=== PATIENT | male | born 1940 | race Caucasian/White ===

== ENCOUNTER 2022-08-13 14:52 | Emergency (ER) | payer OTHER, SELFPAY ==
[2022-08-13] VITALS (13 sets, daily range): BP systolic 101–151; BP diastolic 48–64; PULSE 59–69; RESP 18–30; O2SAT 93–97; BMI 36.3
--- NOTE | 2022-08-13 15:03 | DI.CT.S_ITS ---
PROCEDURE: CT HEAD/BRAIN WO CON INDICATIONS: fall, hit head, anticoag, ? syncope TECHNIQUE: Noncontrast 4.5 mm thick angled axial sections acquired from the foramen magnum to the vertex, with coronal and sagittal reformats. For radiation dose reduction, the following was used: automated exposure control, adjustment of mA and/or kV according to patient size. COMPARISON: [facility], CT, CT CERVICAL SPINE WO CON, 08/13/2022, 15:11. [facility], CR, XR CHEST 1V, 08/13/2022, 14:57. FINDINGS: Image quality: Mild streak artifact can be seen through the skull base. CSF spaces: Basal cisterns are patent. No extra-axial fluid collections. The ventricles are symmetric in size and shape. Brain: No intracranial bleeds or masses. There is cerebral volume loss for age, with resultant ventricular and sulcal prominence. There are periventricular and deep white matter chronic small vessel ischemic changes. There is intracranial internal carotid artery atherosclerosis. Skull and face: Calvarium and visualized facial bones appear intact, without suspicious lesions. Sinuses: Visualized sinuses and mastoids are clear. IMPRESSION: No acute intracranial hemorrhage is seen. No acute intracranial process is seen. Note is made of age-appropriate brain parenchymal volume loss and chronic small vessel ischemic changes. Dictated by: Michael Watkins M.D. on 08/13/2022 at 14:46 Approved by: Michael Watkins M.D. on 08/13/2022 at 14:47
--- NOTE | 2022-08-13 15:03 | DI.CT.S_ITS ---
PROCEDURE: CT CERVICAL SPINE WO CON INDICATIONS: fall TECHNIQUE: Noncontrast 3 mm thick sections acquired from the skull base to the T4 level. Sagittal and coronal reformats were then constructed. For radiation dose reduction, the following was used: automated exposure control, adjustment of mA and/or kV according to patient size. COMPARISON: [facility], CT, CT HEAD/BRAIN WO CON, 08/13/2022, 15:11. [facility], CR, XR CHEST 1V, 08/13/2022, 14:57. FINDINGS: Image quality: This examination is somewhat limited by quantum mottle artifact. Bones: No fractures or dislocations. Visualized superior ribs are intact. There is at least moderate disc space narrowing seen at C3-C4, C4-C5, C5-C6, and C6-C7. Moderate disc space narrowing is seen at C7-T1. Minimal anterolisthesis is seen C2-C3, C3-C4, and C7-T1. Bridging anterior osteophytes are seen throughout mid cervical spine. Soft tissues: Prevertebral soft tissues are normal in thickness. No paravertebral hematomas. No apical pneumothoraces. These 2 leads are partially seen. IMPRESSION: Negative for acute fracture. Advanced cervical spine degenerative changes are seen. Pacer leads are partially seen. Dictated by: Michael Watkins M.D. on 08/13/2022 at 14:44 Approved by: Michael Watkins M.D. on 08/13/2022 at 14:46
--- NOTE | 2022-08-13 15:04 | DI.RAD.S_ITS ---
PROCEDURE: XR CHEST 1V INDICATIONS: syncope, fall TECHNIQUE: One view of the chest was acquired. COMPARISON: [facility], CT, CT HEAD/BRAIN WO [facility], 08/13/2022, 15:11. [facility], CT, CT CERVICAL SPINE WO CON, 08/13/2022, 15:11. FINDINGS: Surgical changes and devices: A pacer device is seen. Lungs and pleura: Lungs are clear. No pleural effusions or pneumothorax. Mediastinum: Mediastinal contours appear normal. Heart size is normal. Atherosclerotic calcification of the aortic arch is noted. Bones and chest wall: No suspicious bony lesions. Age-appropriate bony degenerative changes are seen. Overlying soft tissues appear unremarkable. IMPRESSION: Unremarkable portable chest study for age. Dictated by: Michael Watkins M.D. on 08/13/2022 at 14:49 Approved by: Michael Watkins M.D. on 08/13/2022 at 14:50
[2022-08-13 15:23] LABS: Add Manual Diff / Slide Review NO; Basophils Absolute Auto 0 /uL (0-100); Basophils Percent Auto 0.4 % (0-2); Eosinophils Absolute Auto 300 /uL (0-450); Eosinophils Percent Auto 3.4 % (2-4); Hematocrit 37.7 % (41-53); Lymphocytes Absolute Auto 1600 /uL (1100-4500); Lymphocytes Percent Auto 18.3 % (25-40); Mean Corpuscular HGB Conc 34.4 % (30-36); Mean Corpuscular Hemoglobin 31.7 PG (26-34); Mean Corpuscular Volume 92.2 fL (80-100); Monocytes Absolute Auto 700 /uL (0-900); Monocytes Percent Auto 7.8 % (3-14); Neutrophils Absolute Auto 6100 /uL (1500-7000); Neutrophils Percent Auto 70.1 % (50-75); Platelet Count 210 X10^3/uL (150-400); Red Blood Cell Count 4.09 X10^6/uL (4.5-5.9); Red Cell Distribution Width 13.6 % (11.6-14.8); White Blood Cell Count 8.7 X10^3/uL (4.5-11.0)
[2022-08-13 15:34] LABS: Alanine Aminotransferase 69 IU/L (<50); Albumin 4.2 g/dL (3.5-5.0); Albumin Globulin Ratio 1.5 (1.0-2.8); Alkaline Phosphatase 49 U/L (38-126); Aspartate Aminotransferase 55 IU/L (17-59); BUN Creatinine Ratio 22.2 (6-22); Bilirubin Total 0.4 mg/dL (0.2-1.3); Blood Urea Nitrogen 28 mg/dL (9-20); Calcium 9.4 mg/dL (8.4-10.2); Carbon Dioxide 21 mmol/L (22-32); Chloride 99 mmol/L (98-107); Estimated Glomerular Filt Rate 58 mL/min (>60); Globulin 2.8 g/dL (1.7-4.1); Glucose 147 mg/dL (80-110); HEMOLYSIS < 15 (0-50); Magnesium 1.6 mg/dL (1.6-2.3); Potassium 4.2 mmol/L (3.4-5.1); Sodium 138 mmol/L (137-145)
[2022-08-13 15:46] LABS: NT-proBNP (BNP-Adult 18+) 65 pg/mL (<450); Troponin I < 0.012 ng/mL (0.01-0.034)
--- NOTE | 2022-08-13 15:50 | ED_ITS ---
HPI - Fall General Chief Complaint: Fall Stated Complaint: Fall/head injury/ thinners Time Seen by Provider: 08/13/22 14:55 Source: patient and EMS Mode of arrival: EMS History of Present Illness HPI Narrative: 81-year-old gentleman with history of coronary artery disease, congestive heart failure, pacemaker in place was standing in line began to feel somewhat lightheaded. Bystanders describe him leaning against a pole and then losing balance falling backwards. He describes landing on his bottom 1st then is back then hitting his head. He is on Plavix. Bystanders describe him as unresponsive he describes a sensation of being able to see himself but not able to control his fall. He is not complaining of any pain at this time. He does not note that he has recently had fevers, cough, chills. He has not been noticing chest pain, palpitations, lower extremity edema worsening. Pacemaker interrogation, RxAnte- no cardiac events today with pacemaker interrogation Medications include benazepril 20 mg, hydrochlorothiazide 25 mg, metformin 500 mg b.i.d., finasteride 5 mg, clopidogrel 75 mg, pantoprazole 40 mg, sertraline 50 mg, atorvastatin 80 mg Related Data Allergies Allergy/AdvReac Type Severity Reaction Status Date / Time cephalexin [From Keflex] Allergy Verified 08/13/22 15:04 hydrocodone Allergy Verified 08/13/22 15:04 hydrocortisone Allergy Verified 08/13/22 15:04 Review of Systems Review of Systems Narrative: Remainder of complete review of systems is otherwise unremarkable except for that included in the HPI. Patient History Medical History (Updated 08/13/22 @ 19:17 by Shellie Alves MD) Abdominal hernia Congestive heart failure Coronary artery disease History of pacemaker Hyperlipidemia Hypertension Surgical History (Updated 08/13/22 @ 19:13 by Shellie Alves MD) History of tonsillectomy Social History Smoking Status: Current some day smoker Smoking Status: Current some day smoker tobacco type: cigars alcohol intake frequency: a few times a week Alcohol type: hard liquor Substance Use Type: does not use Exam Initial Vital Signs Initial Vital Signs: Vital Signs Blood Pressure 101/48 L 08/13/22 14:57 General: Healthy appearing, in no acute distress. Able to give a complete and coherent history. Well-nourished well-developed HEENT: Moist mucous membranes, normal sclera with reactive pupils, Neck: No JVD, supple, mild mid cervical tenderness to palpation Respiratory: Lungs are clear to auscultation, no wheezing no rales no rhonchi. Full and symmetrical air movement Cardiac: Irregular without murmurs or bruits. Abdomen: Soft, nontender, good bowel tones, no flank pain Skin: Warm and dry, no rashes Neurologic: Grossly neurologically intact with no obvious asymmetries or abnormalities Extremities: No trauma, well perfused Psych: Cooperative, appropriate insight and affect Course Orders Ordered: ED Orders 08/13/22 14:59 EKG-12 Lead Routine 08/13/22 15:03 CT cervical spine wo con Stat CT head/brain wo con Stat 08/13/22 15:04 XR chest 1V Stat 08/13/22 15:09 Complete Blood Count AUTO DIFF Stat Comprehensive Metabolic Panel Stat Magnesium Stat NT-proBNP (BNP-Adult 18+) Stat Troponin I Stat 08/13/22 15:33 COVID19 -Nasal RAPID/Pre-Proc Stat Vital Signs Vital signs: Vital Signs - 8 hr 08/13/22 15:04 08/13/22 14:57 08/13/22 14:58 Pulse Rate 62 66 Respiratory Rate 23 26 H Blood Pressure 101/48 L 101/48 L Pulse Oximetry 94 95 Oxygen Delivery Method Room Air 08/13/22 15:00 08/13/22 15:00 08/13/22 15:30 Pulse Rate 60 60 Respiratory Rate 25 H 24 Blood Pressure 106/56 L Pulse Oximetry 93 94 Oxygen Delivery Method 08/13/22 16:00 08/13/22 16:30 08/13/22 17:00 Pulse Rate 60 60 69 Respiratory Rate 25 H 27 H 27 H Blood Pressure Pulse Oximetry 94 95 Oxygen Delivery Method 08/13/22 17:02 08/13/22 17:02 08/13/22 17:30 Pulse Rate 61 59 L Respiratory Rate 25 H 18 Blood Pressure 151/64 H Pulse Oximetry 95 97 Oxygen Delivery Method MDM - Fall Lab Data Result diagrams: 08/13/22 15:09 08/13/22 15:09 Labs: Lab Results 08/13/22 08/13/22 08/13/22 Range/Units 15:09 15:09 15:33 WBC 8.7 (4.5-11.0) X10^3/uL RBC 4.09 L (4.5-5.9) X10^6/uL Hgb 13.0 L (13.5-17.5) g/dL Hct 37.7 L (41-53) % MCV 92.2 (80-100) fL MCH 31.7 (26-34) PG MCHC 34.4 (30-36) % RDW 13.6 (11.6-14.8) % Plt Count 210 (150-400) X10^3/uL Neut % (Auto) 70.1 (50-75) % Lymph % (Auto) 18.3 L (25-40) % [place] % (Auto) 7.8 (3-14) % Eos % (Auto) 3.4 (2-4) % Baso % (Auto) 0.4 (0-2) % Neut # (Auto) 6100 (2980-4702) /uL Lymph # (Auto) 1600 (2720-1574) /uL [place] # (Auto) 700 (0-900) /uL Eos # (Auto) 300 (0-450) /uL Baso # (Auto) 0 (0-100) /uL Sodium 138 (137-145) mmol/L Potassium 4.2 (3.4-5.1) mmol/L Chloride 99 (98-107) mmol/L Carbon Dioxide 21 L (22-32) mmol/L BUN 28 H (9-20) mg/dL Creatinine 1.26 H (0.66-1.25) mg/dL Estimated GFR 58 L (>60) mL/min BUN/Creatinine Ratio 22.2 H (6-22) Glucose 147 H (80-110) mg/dL Calcium 9.4 (8.4-10.2) mg/dL Magnesium 1.6 (1.6-2.3) mg/dL Total Bilirubin 0.4 (0.2-1.3) mg/dL AST 55 (17-59) IU/L ALT 69 H (<50) IU/L Alkaline Phosphatase 49 (38-126) U/L Troponin I < 0.012 (0.01-0.034) ng/mL NT-Pro-B Natriuret Pep 65 (<450) pg/mL Total Protein 7.0 (6.3-8.2) g/dL Albumin 4.2 (3.5-5.0) g/dL Globulin 2.8 (1.7-4.1) g/dL Albumin/Globulin Ratio 1.5 (1.0-2.8) SARS-CoV-2 (PCR) Negative (Negative) Imaging Data Chest x-ray: Radiologist's Impression: FINDINGS:? ? Surgical changes and devices:? A pacer device is seen.? ? Lungs and pleura:? Lungs are clear.? No pleural effusions or pneumothorax.? ? Mediastinum:? Mediastinal contours appear normal.? Heart size is normal.? Atherosclerotic calcification of the aortic arch is noted.? ? Bones and chest wall:? No suspicious bony lesions.? Age-appropriate bony degenerative changes are seen. ? Overlying soft tissues appear unremarkable.? ? ? IMPRESSION:? Unremarkable portable chest study for age. ? ? Dictated by: Michael Watkins M.D. on 08/13/2022 at 14:49 ? ? CT scan - head: Radiologist's Impression: FINDINGS:? ? Surgical changes and devices:? A pacer device is seen.? ? Lungs and pleura:? Lungs are clear.? No pleural effusions or pneumothorax.? ? Mediastinum:? Mediastinal contours appear normal.? Heart size is normal.? Atherosclerotic calcification of the aortic arch is noted.? ? Bones and chest wall:? No suspicious bony lesions.? Age-appropriate bony degenerative changes are seen. ? Overlying soft tissues appear unremarkable.? ? ? IMPRESSION:? Unremarkable portable chest study for age. ? ? Dictated by: Michael Watkins M.D. on 08/13/2022 at 14:49 ? ? CT - cervical spine: Radiologist's Impression: FINDINGS:? Image quality:? This examination is somewhat limited by quantum mottle artifact.? ? Bones:? No fractures or dislocations.? Visualized superior ribs are intact.? ? There is at least moderate disc space narrowing seen at C3-C4, C4-C5, C5-C6, and C6-C7.? Moderate disc space narrowing is seen at C7-T1.? Minimal anterolisthesis is seen C2-C3, C3-C4, and C7-T1.? Bridging anterior osteophytes are seen throughout mid cervical spine. ? Soft tissues:? Prevertebral soft tissues are normal in thickness.? No paravertebral hematomas.? No apical pneumothoraces.? These 2 leads are partially seen. ? ? IMPRESSION:? Negative for acute fracture. ? Advanced cervical spine degenerative changes are seen. ? Pacer leads are partially seen. ? ? Dictated by: Michael Watkins M.D. on 08/13/2022 at 14:44 ? ? ECG Data Interpretation: Paced rhythm at a rate of 59 MDM Narrative Medical decision making narrative: 81-year-old gentleman who was standing in line outside in the warm sun mid day with a near syncopal episode. There is no evidence of intracranial bleed, significant musculoskeletal trauma, TIA or stroke, no suggestion of infection, sepsis, acute coronary syndrome, aortic dissection or additional diagnosis at require hospitalization and further observation. Patient is re-examined and continues to have no pain and no complaints. Questions are answered and he is safe for home discharge Discharge Plan Departure Patient Disposition: Home Clinical Impression: Postural dizziness with near syncope Fall Qualifiers: Encounter type: initial encounter Qualified Code(s): W19.XXXA - Unspecified fall, initial encounter Instructions: DI for Orthostatic Hypotension Activity Restrictions/Additional Instructions: Thank you for coming in today I suspect that you are slightly dehydrated and that in combination with standing with your knees locked while waiting in line leg to your near syncopal episode. Fortunately, the remainder of your workup is very reassuring. There is no bleeding inside her brain, no injury to your cervical spine, no evidence of infection, heart attack, stroke or alternate explanations that would require hospitalization this evening. I would encourage you to make sure that your drinking plenty of fluids but I do not suggest any changes to your medications. Please do follow-up your primary care doctor If you find that you are getting worse or develop any new symptoms, please feel free to return to the emergency department for further evaluation. Referrals: Chucky Whitaker MD [Primary Care Provider] -
[2022-08-13 15:57] LABS: COVID19 -Nasal RAPID Negative (Negative)
== END 2022-08-13 19:34 | disposition home or self-care (01) ==
PROVIDERS: Emergency Provider Emergency Medicine; PCP Family Medicine
DX: R42 Dizziness and giddiness (principal); S09.90XA Unspecified injury of head, initial encounter; W19.XXXA Unspecified fall, initial encounter; Z95.0 Presence of cardiac pacemaker; Z20.822 Contact with and (suspected) exposure to COVID-19
CPT/HCPCS: 36415; 70450; 71045; 72125; 80053; 83735; 83880; 84484; 85025; 87635; 93005; 99283; 99284; C9803